=== PATIENT | female | born 1980 | race Caucasian/White ===

== ENCOUNTER 2021-09-21 04:14 | Day surgery (SDC) | payer OTHER ==
[2021-09-20 12:09] VITALS: BMI 31.1
[~2021-09-21 04:14] MED LIST: CEFAZOLIN 2 GM in SODIUM CHLORIDE 100 ML IVPB ONE
[2021-09-21] MEDS ORDERED: ceFAZolin SODIUM 1 GM VIAL ONE ×3 (07:50→23:39)
[2021-09-21] MEDS ORDERED: LIDOCAINE HCL 2% 100 MG/5 ML DISP.SYRIN ONE (08:01)
[2021-09-21] MEDS ORDERED: ePHEDrine SULFATE 50 MG/1 ML AMPULE ONE (08:01)
[2021-09-21] MEDS ORDERED: DEXAMETHASONE SOD PHOSPHATE 4 MG/1 ML VIAL ONE (08:01)
[2021-09-21] MEDS ORDERED: KETOROLAC TROMETHAMINE 30 MG/1 ML VIAL ONE (08:01)
[2021-09-21] MEDS ORDERED: ROCURONIUM BROMIDE 50 MG/5 ML SYRINGE ONE (08:01)
[2021-09-21] MEDS ORDERED: PHENYLEPHRINE HCL 10 MG/1 ML SINGLE DOSE VIAL ONE (08:01)
[2021-09-21] MEDS ORDERED: PROPOFOL 20 ML ONE ×2 (08:01)
[2021-09-21] MEDS ORDERED: SUCCINYLCHOLINE CHLORIDE 200 MG/10 ML SYRINGE ONE (08:02)
[2021-09-21] MEDS ORDERED: MIDAZOLAM HCL 2 MG/2 ML SINGLE DOSE VIAL ONE (08:02)
[2021-09-21] MEDS ORDERED: BUPIVACAINE LIPOSOME/PF (EXPAREL) 266 MG/20 ML VIAL ONE (09:35)
[2021-09-21] MEDS ORDERED: BUPIVACAINE HCL/PF 0.5% (5MG/ML) 10 ML VIAL ONE (09:36)
[2021-09-21] MEDS ORDERED: ceFAZolin SODIUM 1 GM VIAL IVPB ONE (10:05)
[2021-09-21] MEDS ORDERED: GLYCOPYRROLATE 0.2 MG/1 ML VIAL ONE (12:01)
[2021-09-21] MEDS ORDERED: NEOSTIGMINE METHYLSULFATE 0.5 MG/ML - 10 ML MDV ONE (12:01)
[2021-09-21] MEDS ORDERED: ONDANSETRON 4 MG/2 ML VIAL IVPUSH PRN ×2 (12:20→12:43)
[2021-09-21] MEDS ORDERED: ACETAMINOPHEN 1000 MG/100 ML BAG IVPB ONE (12:21)
[2021-09-21] MEDS ORDERED: LACTATED RINGERS SOLUTION 1,000 ML IV SCH (12:30)
[2021-09-21] MEDS ORDERED: IBUPROFEN 800 MG/8 ML IJ IVPB PRN (12:43)
[2021-09-21] MEDS ORDERED: ACETAMINOPHEN 325 MG TABLET (FP) PO PRN (12:43)
[2021-09-21] MEDS ORDERED: DOCUSATE SODIUM 100 MG CAPSULE (FP) PO PRN (12:43)
[2021-09-21] MEDS ORDERED: BISACODYL 5 MG TABLET.DR (FP) PO PRN (12:43)
[2021-09-21] MEDS ORDERED: PATIENT'S OWN MEDICATION (NON-FORMULARY) (Meloxicam [Meloxicam] 15 MG Tablet) PO PRN (12:46)
[2021-09-21 14:01] LABS: HEMATOCRIT 24.6 % (32.4-45.2); HEMOGLOBIN 7.3 GM/dL (10.7-15.3); MCHC 29.8 g/dl (32.0-36.0); MEAN CELL VOLUME 65.3 fl (80-96); MEAN PLT VOLUME 8.9 fl (7.5-11.1); PLATELET COUNT 337 10^3/uL (134-434); RBC 3.77 M/mm3 (3.60-5.2); RDW 17.8 % (11.6-15.6); WHITE BLOOD COUNT 10.2 K/mm3 (4.0-10.0)
[2021-09-21 14:02] LABS: MCH 19.5 pg (25.7-33.7)
[2021-09-21] MEDS ORDERED: DEXTROSE 5%-WATER - 50 ML IVPB ONE ×2 (16:13→23:38)
[2021-09-21] MEDS: CEFAZOLIN 1 GM in DEXTROSE 5%-WATER - 1 GM/50 ML IVPB IVPB SCH (18:05)
[2021-09-21] MEDS: oxyCODONE HCL 5 MG TABLET PO PRN (21:07)
[2021-09-22] MEDS: CEFAZOLIN 1 GM in DEXTROSE 5%-WATER - 1 GM/50 ML IVPB IVPB SCH ×2 (01:21→10:19)
[2021-09-22] MEDS: oxyCODONE HCL 5 MG TABLET PO PRN ×2 (03:11→10:19)
[2021-09-22 08:34] LABS: HEMATOCRIT 21.9 % (32.4-45.2); MEAN CELL VOLUME 65.5 fl (80-96); MEAN PLT VOLUME 8.4 fl (7.5-11.1); PLATELET COUNT 310 10^3/uL (134-434); RBC 3.34 M/mm3 (3.60-5.2); RDW 18.2 % (11.6-15.6); WHITE BLOOD COUNT 9.6 K/mm3 (4.0-10.0)
[2021-09-22 08:47] LABS: MCH 19.6 pg (25.7-33.7)
[2021-09-22 08:50] LABS: HEMOGLOBIN 6.6 GM/dL (10.7-15.3)
[2021-09-22] MEDS ORDERED: DEXTROSE 5%-WATER - 50 ML IVPB ONE (10:11)
[2021-09-22] MEDS ORDERED: ceFAZolin SODIUM 1 GM VIAL ONE (10:11)
[2021-09-22 10:40] VITALS: BP 112/68; PULSE 69; TEMP 98.9
[2021-09-22] MEDS ORDERED: FERROUS SO4 325 MG TABLET (FP) PO SCH (11:30)
== END 2021-09-22 13:40 | disposition home or self-care (01) ==
LOC: JASUSAT 04:14 → J3W 14:32 → JASUSAT 09-22 13:40
PROVIDERS: ATTEND Specialist
PROC: 0UT7FZZ Resection of Bilateral Fallopian Tubes, Via Natural or Artificial Opening With Percutaneous Endoscopic Assistance (ICD-10-PCS; 2021-09-21)
PROC: 8E0W4CZ Robotic Assisted Procedure of Trunk Region, Percutaneous Endoscopic Approach (ICD-10-PCS; 2021-09-21)
PROC: 0UT9FZZ Resection of Uterus, Via Natural or Artificial Opening With Percutaneous Endoscopic Assistance (ICD-10-PCS; principal; 2021-09-21 09:30)
DX: D25.9 Leiomyoma of uterus, unspecified (principal); N92.0 Excessive and frequent menstruation with regular cycle; D50.0 Iron deficiency anemia secondary to blood loss (chronic)
CPT/HCPCS: 58554; S2900; 36415; 81025; 85027; 86850; 86900; 86901; 86922; 88302-TC; 88307-TC; 94760